=== PATIENT | female | born 1990 | race Caucasian/White ===

== ENCOUNTER 2020-06-04 10:50 | Emergency (ER) | payer OTHER, SELFPAY ==
[2020-06-04 11:02] VITALS: BP 113/75; PULSE 75; RESP 16; TEMP 36.4; O2SAT 98
--- NOTE | 2020-06-04 11:23 | ED.WOUNDLAC ---
HPI - Wound/Laceration General Chief Complaint: Wound/Laceration Stated Complaint: lump under right armpit Time Seen by Provider: 06/04/20 11:24 Source: patient Mode of arrival: ambulatory Limitations: no limitations History of Present Illness HPI narrative: Savanah Merrill is a 29 yo female with no PMH who comes to express care with tender bump under R axilla and rash on same arm away from lump. States has been present for 3 days- bump is 2 cm, non fluctuant. Related Data Home Medications Medication Instructions Recorded Confirmed No Home Medications 06/04/20 06/04/20 Allergies Allergy/AdvReac Type Severity Reaction Status Date / Time codeine Allergy Unknown Unknown Verified 10/05/19 14:45 Review of Systems Review of Systems: Narrative: CONSTITUTIONAL: Denies fever, chills, sweats. EYES: Denies visual changes, redness, discharge. ENT: Denies rhinorrhea, congestion, sore throat, otalgia. CARDIOVASCULAR: Denies chest pain, palpitations, edema. RESPIRATORY: Denies dyspnea, wheezing, cough GASTROINTESTINAL: Denies abdominal pain, nausea, vomiting, diarrhea. GENITOURINARY: Denies dysuria, hematuria, abnormal discharge SKIN: Rash on bilateral arms abdomen on breast; has deep 2 x 2 enlarged tender lymph node in the right axilla NEUROLOGIC: Denies numbness, or focal weakness. PSYCHIATRIC: Denies anxiety or depression. [facility] Past Medical History Medical History Active labor at term Anxiety Asthma Encounter for supervision of normal in multigravida in third trimester Megaloblastic anemia due to Family History Family History Father Hypertension Grandparent Carcinoma of colon Family history of primary malignant neoplasm of liver Social History Social History Smoking status: Former smoker Smoking end date: 09/21/19 Alcohol intake: never Substance use: never Gender identity (if verbalized by the patient): Female Spiritual care concerns: No Comments At time of signature, I agree with nursing past medical, surgical, social and family history. There is no relevant family history pertinent to the presenting complaint. Exam Narrative: Exam Narrative: GENERAL: This is a well-nourished, well-developed patient, in mild distress. HEAD: normocephalic, atraumatic. EYES: PERRL. Sclera clear/white. Vision is grossly intact. EARS: External ears normal, auditory canals clear and without drainage, TMs normal without perforation. Hearing grossly intact. NOSE: External nose normal without nasal discharge, nares without redness, no rhinorrhea. THROAT: Mucous membranes moist, posterior pharynx NECK: Neck supple, non-tender CARDIOVASCULAR: Regular rate and rhythm without murmurs, gallops, or rubs. RESPIRATORY: Clear to auscultation. Breath sounds equal bilaterally. No wheezes, rales, or rhonchi. GASTROINTESTINAL: Abdomen soft, non-tender, SKIN: Papular rash to abdomen pelvis region back bilateral arms. Is pruritic; has 2 x 2 enlarged tender lymph node under right axilla NEURO: awake, alert, and oriented to person, place and time. There were no obvious focal neurologic abnormalities. Steady gait EXTREMITIES: Normal range of motion. BACK: Nontender without deformity Course Course Emergency Course: Started on Keflex for the adenitis-to also use warm pack to axilla 3 times daily Started on Medrol Dosepak and Pepcid for rash that is contact dermatitis; patient will use OTC Benadryl to supplement Pepcid Patient follow-up with primary care physician Vital Signs Vital signs: Vital Signs Temperature 97.6 F 06/04/20 11:02 Pulse Rate 75 06/04/20 11:02 Respiratory Rate 16 06/04/20 11:02 Blood Pressure 113/75 06/04/20 11:02 Pulse Oximetry 98 06/04/20 11:02 Temperature 97.6 F 06/04/20 11:02 Pulse Rate 75
== END 2020-06-04 11:49 | disposition home or self-care (01) ==
PROVIDERS: Emergency Provider Nurse Practitioner
DX: L04.2 Acute lymphadenitis of upper limb (principal); L23.7 Allergic contact dermatitis due to plants, except food; Z87.891 Personal history of nicotine dependence; J45.909 Unspecified asthma, uncomplicated
CPT/HCPCS: 99213; G0463

== ENCOUNTER 2020-12-01 17:03 | Emergency (ER) | payer OTHER, SELFPAY ==
--- NOTE | 2020-12-01 17:12 | ED.SKABFB ---
HPI - Skin/Abscess/Foreign Bdy General Chief complaint: Skin/Abscess/Foreign Body Stated complaint: Splinter in Arm Time Seen by Provider: 12/01/20 17:20 Source: patient and RN notes reviewed Mode of arrival: ambulatory Limitations: no limitations History of Present Illness HPI narrative: 30-year-old female presents concern for her in her right forearm. Reports just prior to arrival [place] and fell into a tree catching herself with her arm. Reports she sustained a splinter. Reports she can see the splinter sticking out of her arm but when she tried to pull it out it was very painful. She is up-to-date on her tetanus shot. She denies any decreased strength, sensation, range of motion in the arm or distally. Denies any surrounding redness, tenderness, drainage. MD complaint: foreign body Related Data Home Medications Medication Instructions Recorded Confirmed No Home Medications 12/01/20 12/01/20 Allergies Allergy/AdvReac Type Severity Reaction Status Date / Time codeine Allergy Unknown Unknown Verified 12/01/20 17:14 Review of Systems Review of Systems: Narrative: CONSTITUTIONAL: Denies malaise, chills, sweats, or fever. SKIN: Reports splinter in the right forearm MUSCULOSKELETAL: Denies muscle skeletal pain NEUROLOGIC: Denies numbness, weakness All systems reviewed & are unremarkable except as noted in HPI and below PMFSH Past Medical History Medical History (Updated 12/01/20 @ 17:59 by Mary Ann Marley NP) Active labor at term Anxiety Asthma Encounter for supervision of normal in multigravida in third trimester Megaloblastic anemia due to Family History Family History Father Hypertension Grandparent Carcinoma of colon Family history of primary malignant neoplasm of liver Social History Social History Smoking status: Former smoker Smoking end date: 09/21/19 Alcohol intake: never Substance use: never Gender identity (if verbalized by the patient): Female Spiritual care concerns: No Comments At time of signature, agree with nursing past medical, surgical, social and family history. There is no relevant family history pertinent to the presenting complaint Exam Narrative: Exam Narrative: GENERAL: Well-appearing, well-nourished, and in no acute distress. HEAD: Normocephalic, atraumatic. EYES: PERRLA, conjunctivae clear ENT: Mucous membranes moist. NECK: Supple CHEST: No respiratory distress. Speaks in full sentences. HEART: Regular rate and rhythm. Capillary refill less than 3 seconds right upper extremity EXTREMITIES: Right arm, hand, digits have normal range of motion, no edema, normal strength and sensation. SKIN: Warm, dry abrasion with protruding wood splinter noted to right forearm without surrounding erythema, edema, induration, drainage NEURO: Alert and oriented x3. PSYCH: Normal mood and affect Skin: Full body images: 1. Foreign body visible, would splinter Course Course Emergency Course: Patient is aware of diagnosis, understands and agrees to treatment plan. Anticipatory guidance given. Patient agrees to follow-up as directed and is aware of reasons to seek care at the emergency department. Portions of this record may have been created with voice recognition software Vital Signs Vital signs: Reviewed. Procedures Foreign Body Removal Foreign Body #1: Foreign Body Removal Date: 12/01/20 Foreign Body Removal Time: 17:38 Time Out Performed: yes Site: right and upper extremity Description of foreign body: other (Wood splinter) Technique: removal with forceps, incision made to facilitate removal and irrigation Confirmed by:: direct visualization Complications: none Post-procedure exam: awake, alert Neurovascular: normal distal pulse, normal
[2020-12-01 17:16] VITALS: BP 108/60; PULSE 61; RESP 18; TEMP 36.6; O2SAT 100
== END 2020-12-01 18:00 | disposition home or self-care (01) ==
PROVIDERS: Emergency Provider Nurse Practitioner
DX: S51.841A Puncture wound with foreign body of right forearm, initial encounter (principal); W45.8XXA Other foreign body or object entering through skin, initial encounter; Z87.891 Personal history of nicotine dependence; J45.909 Unspecified asthma, uncomplicated
CPT/HCPCS: 10120; 99212; G0463

== ENCOUNTER 2021-04-01 11:35 | Emergency (ER) | payer OTHER, SELFPAY ==
--- NOTE | ~2021-04-01 | XR_ITS ---
EXAMINATION: XR hand RT min 3V EXAM DATE: 04/01/2021 12:02 INDICATION: Initial encounter following injury, with pain of the right hand. Swelling. TECHNIQUE: Right hand frontal, lateral and oblique projections obtained and reviewed. Comparison is m anju to prior examination from 09/08/2013. FINDINGS: Right metacarpal bones are unremarkable. There are no acute fractures or dislocations ident ified. There is no subcutaneous gas. The soft tissue is unremarkable. There are no radiopaque for eign bodies. IMPRESSION: No acute osseous findings. Reviewed, dictated and finalized at location B. IMPRESSION: No acute osseous findings.
[2021-04-01 11:39] VITALS: BP 125/71; PULSE 76; RESP 16; TEMP 37.2; O2SAT 99
--- NOTE | 2021-04-01 12:24 | ED.UPPEXIN ---
HPI - Extremity Injury (Upper) General Chief Complaint: Extremity Injury, Upper Stated Complaint: right hand pain Time Seen by Provider: 04/01/21 12:11 Source: RN notes reviewed History of Present Illness HPI narrative: Patient presents emergency room from home for pain in her right hand. Patient states last night she excellently struck her right hand in the region of the second knuckle on her child's play kitchen she states she had swelling in that area with pain since that time the pain is only localized to that acute region she denies any other trauma or injury states she is taken nothing for the pain states the pain is worse when she attempts to flex the finger at the knuckle Related Data Allergies Allergy/AdvReac Type Severity Reaction Status Date / Time codeine Allergy Unknown Unknown Verified 04/01/21 12:06 Review of Systems Review of Systems: Narrative: Gen.: Denies fevers or chills Musculoskeletal: See HPI Neuro: Denies numbness, tingling, weakness Skin: Denies rash Endo: Denies DM PMFSH Past Medical History Medical History (Updated 04/01/21 @ 12:27 by Juan Camilo DO) Active labor at term Anxiety Asthma Encounter for supervision of normal in multigravida in third trimester Megaloblastic anemia due to Family History Family History Father Hypertension Grandparent Carcinoma of colon Family history of primary malignant neoplasm of liver Social History Social History Smoking status: Former smoker Smoking end date: 09/21/19 Alcohol intake: never Substance use: never Gender identity (if verbalized by the patient): Female Spiritual care concerns: No Exam Narrative: Exam Narrative: APPEARANCE: No acute distress, nontoxic, resting in bed Eyes: EOMI HEENT: Normocephalic, atraumatic, RESPIRATORY: No respiratory distress MUSCULOSKELETAl: Tender to palpation over the second right MCP joint with swelling and mild ecchymosis present there is swelling ecchymosis the proceeds of the second digit there is no tenderness of the first, third, fourth or fifth MCP joints, no tenderness of the second PIP or DIP joint, full extension of all the joints pain with flexion at the second MCP joint with full flexion and extension at the DIP and PIP joints, radial pulse 2+ neurovascular intact capillary refill less than 3 seconds NEURO: Awake and alert. Following commands, speech normal, no focal deficits SKIN:: Warm, dry. Normal Color no rash or lesions Course Course Emergency Course: Discussed with patient results of workup and diagnosis. Discussed need for follow-up with primary care, proper use of medication, and reasons to return to the emergency department. Patient understands and agrees to current treatment plan Vital Signs Vital signs: Vital Signs Temperature 98.9 F 04/01/21 11:39 Pulse Rate 76 04/01/21 11:39 Respiratory Rate 16 04/01/21 11:39 Blood Pressure 125/71 04/01/21 11:39 Pulse Oximetry 99 04/01/21 11:39 Temperature 98.9 F 04/01/21 11:39 Pulse Rate 76 04/01/21 11:39 Respiratory Rate 16 04/01/21 11:39 Blood Pressure 125/71 04/01/21 11:39 Pulse Oximetry 99 04/01/21 11:39 MDM - Extremity Injury (Upper) Imaging Data Radiologist's impression: ITS Impressions Hand X-Ray 04/01/21 12:04 IMPRESSION: No acute osseous findings. Discharge Plan Discharge Clinical Impression: Contusion of hand, right Patient Disposition: Home, Self-Care Condition: Stable Instructions: Antibiotic Form, Contusion in Adults (ED) Additional Instructions: Return for increasing pain numbness or tingling in extremities or any other symptoms of concern Prescriptions: New ibuprofen [IBU] 600 mg tablet 600 mg PO Q6H PRN (Reason: pain) Qty: 20 RF: 0 Follow-up/Referrals: Romeo Darby MD [Physician] - (Follow-u
[2021-04-01] MEDS: IBUPROFEN 600 MG TABLET PO (12:32)
[2021-04-01 12:45] VITALS: BP 122/77; PULSE 77; RESP 16; O2SAT 100
--- NOTE | 2021-04-07 08:51 | PC.NURSE ---
LATE ENTRY Patient injury was to right hand, not left hand. This note is being entered to document information to the patient's record. The following information was omitted on [04/01/21], by [Marjan Harris RN].
== END 2021-04-01 12:46 | disposition home or self-care (01) ==
PROVIDERS: Emergency Provider Emergency Medicine
DX: S60.221A Contusion of right hand, initial encounter (principal); F41.9 Anxiety disorder, unspecified; J45.909 Unspecified asthma, uncomplicated; W22.09XA Striking against other stationary object, initial encounter
CPT/HCPCS: 29130; 73130; 99283; A9270

== ENCOUNTER 2023-10-10 17:55 | Emergency (ER) | payer OTHER, SELFPAY ==
[2023-10-10 18:24] VITALS: BP 113/68; PULSE 105; TEMP 36.8; O2SAT 100
[2023-10-10 19:27] VITALS: BP 116/68; PULSE 86; RESP 15; O2SAT 100
[2023-10-10 19:31] LABS: Basophils Percent Auto 0.1 % (0.2-1.2); Eosinophils Percent Auto 0.1 % (0-4.4); Hematocrit 37.1 % (37.0-47.0); Hemoglobin 12.7 g/dL (12.0-15.0); Immature Granulocyte Absolute 0.02 K/mm3 (0.00-0.031); Immature Granulocyte Percent A 0.3 % (0-0.5); Lymphocytes Absolute Auto 0.23 K/mm3 (0.9-3.2); Lymphocytes Percent Auto 3.4 % (18.3-44.2); Mean Corpuscular HGB Conc 34.2 g/dl (32-36); Mean Corpuscular Volume 87.7 fl (80-100); Mean Platelet Volume 10.2 fl (7.4-10.4); Monocytes Absolute Auto 0.4 K/mm3 (0.1-0.6); Monocytes Percent Auto 5.5 % (2.6-8.5); Neutrophils Absolute Auto 6.1 K/mm3 (1.3-6.7); Neutrophils Percent Auto 90.6 % (45.5-73.1); Platelet Count Result 169 k/mm3 (150-375); Red Blood Count 4.23 M/mm3 (4.2-5.4); Red Cell Distribution Width 12.2 % (11.5-14.5); White Blood Count 6.8 K/mm3 (4.5-10.0)
[2023-10-10 19:39] LABS: Appearance Urine Clear (Clear); Bacteria Urine 1+ /hpf; Bilirubin Urine Negative (Negative); Blood Urine 2+ (Negative); Color Urine Dark Yellow (Yellow); Glucose Urine UA Negative (Negative); Ketones Urine 4+ mg/dL (Negative); Leukocyte Esterase Ur Negative LEU/UL (Negative); Need Manual Microscopic Reviewed; Nitrate Urine Negative (Negative); Non Pathogenic Casts 0-2; Protein Urine 1+ mg/dL (Negative); RBC Urine 0-2 /hpf (0-2); Specific Grav Ur 1.025 (1.001-1.035); Squamous Epithelial Cell Urine Moderate /hpf (Few); pH Urine 5.5 (5.0-9.0)
[2023-10-10 19:40] LABS: Add Urine Microscopic? YES
[2023-10-10 20:05] LABS: Alanine Aminotransferase 11 U/L (6-35); Albumin Level 4.3 g/dL (3.5-5.1); Alkaline Phosphatase 54 U/L (38-126); Anion Gap 6 mmol/L (8-16); Aspartate Amino Transferase 20 U/L (14-36); Bilirubin,Total 0.4 mg/dL (0.2-1.3); Blood Urea Nitrogen 5 mg/dL (7-17); Calcium 9.6 mg/dL (8.4-10.2); Carbon Dioxide 25 mmol/L (22-30); Chloride 103 mmol/L (98-107); Estimated CRCL calculation 132 ml/min; Estimated Glomerular Filt Rate > 60; Glucose 116 mg/dL (65-110); Lipase 31 U/L (23-300); Potassium 3.2 mmol/L (3.4-5.0); Sodium 134 mmol/L (137-145)
[2023-10-10] MEDS: ONDANSETRON INJ 4 MG/2 ML VIAL IV PUSH (20:25)
[2023-10-10] MEDS: LACTATED RINGERS 1,000 ML 999 ML IV CONT (20:36)
[2023-10-10] MEDS: ACETAMINOPHEN 325 MG TABLET 650 MG PO (21:17)
[2023-10-10 21:21] VITALS: BP 110/70; PULSE 86; RESP 15; O2SAT 100
--- NOTE | 2023-10-10 21:37 | ED.ABDPAIN ---
HPI - Abdominal Pain General Chief Complaint: Abdominal Pain Stated Complaint: 16WEEKS PREG ABD PAIN Time Seen by Provider: 10/10/23 20:22 Source: patient Mode of arrival: ambulatory History of Present Illness HPI narrative: 33-year-old 5 para for about 16 weeks of gestation here with a complaint of nausea, vomiting, headache for past few days. Patient states that she does not have OBGYN because of her insurance. She presently denies any vaginal bleeding or discharge. MD elicited complaint: abdominal pain Onset (ago): week(s) Pain Consistency: constant Location: none Severity: moderate Quality: aching Radiation: none Migration to: no migration Exacerbating factors: eating Relieving factors: nothing Context: confirms other () Associated symptoms: denies other symptoms, nausea and vomiting Related Data Patient : Yes Allergies Allergy/AdvReac Type Severity Reaction Status Date / Time codeine Allergy Unknown Unknown Verified 04/01/21 12:06 Review of Systems Review of Systems: All systems reviewed & are unremarkable except as noted in HPI and below Constitutional: Constitutional: Reports no additional constitutional complaints Eyes: Eyes: Reports no additional eye complaints ENT: Reports system reviewed and no additional complaints, except as documented Cardiovascular: Cardiovascular: Reports no additional cardiovascular complaints Respiratory: Respiratory: Reports no additional respiratory complaints Gastrointestinal: Gastrointestinal: Reports as per HPI Musculoskeletal: Musculoskeletal: Reports no additional musculoskeletal complaints Neurologic: Reports system reviewed and no additional complaints, except as documented Psychiatric: Psychiatric: Reports no additional psychiatric complaints PMFSH Past Medical History Medical History (Updated 10/10/23 @ 21:40 by Julius Ernandez MD) Active labor at term Anxiety Asthma Encounter for supervision of normal in multigravida in third trimester Megaloblastic anemia due to Family History Family History Father Hypertension Grandparent Carcinoma of colon Family history of primary malignant neoplasm of liver Social History Social History Smoking status: Former smoker Smoking end date: 09/21/19 Alcohol intake: never Substance use: never Gender identity (if verbalized by the patient): Female Spiritual care concerns: No Exam Narrative: GENERAL: Well-appearing, well-nourished, and in no acute distress. HEAD: Normocephalic, atraumatic. EYES: PERRLA and EOMI.. NECK: Supple. CHEST: Clear to auscultation. No respiratory distress. HEART: Regular rate and rhythm. No murmur heard. Normal peripheral pulses. ABDOMEN: Soft, nontender, nondistended, normal active bowel sounds. EXTREMITIES: Normal range of motion. No edema. SKIN: Warm, dry, no rash. NEURO: No focal deficits. Alert and oriented x3. PSYCH: Normal mood and affect. Course Course Emergency Course: patient was given a L of LR, Zofran. She is feeling much better rest however still has a headache new given Tylenol. Recommended her to follow-up with OBGYN. Vital Signs Vital signs: Vital Signs Temperature 36.8 C 10/10/23 18:24 Pulse Rate 105 H 10/10/23 18:24 Blood Pressure 113/68 10/10/23 18:24 Pulse Oximetry 100 10/10/23 18:24 Temperature 36.8 C 10/10/23 18:24 Pulse Rate 86 10/10/23 21:21 Respiratory Rate 15 10/10/23 21:21 Blood Pressure 110/70 10/10/23 21:21 Pulse Oximetry 100 10/10/23 21:21 MDM - Abdominal Pain Lab Data 10/10/23 19:21 10/10/23 19:21 Labs: Lab Results 10/10/23 Range/Units 19:21 WBC 6.8 (4.5-10.0) K/mm3 RBC 4.23 (4.2-5.4) M/mm3 Hgb 12.7 (12.0-15.0) g/dL Hct 37.1 (37.0-47.0) % MCV 87.7 (80-100) fl MCH 3
[2023-10-10 21:58] VITALS: BP 108/64; PULSE 84; RESP 17; O2SAT 99
== END 2023-10-10 22:00 | disposition home or self-care (01) ==
PROVIDERS: Emergency Medicine; Emergency Provider Family Medicine
DX: O21.0 Mild hyperemesis gravidarum (principal); O99.512 Diseases of the respiratory system complicating pregnancy, second trimester; J45.909 Unspecified asthma, uncomplicated; Z86.2 Personal history of diseases of the blood and blood-forming organs and certain disorders involving the immune mechanism; Z87.891 Personal history of nicotine dependence; Z3A.16 16 weeks gestation of pregnancy
CPT/HCPCS: 36415; 80053; 81001; 81025; 83690; 85025; 87086; 96361; 96374; 99284; A9270; J2405; J7120

== ENCOUNTER 2023-12-07 11:07 | Observation (INO) | payer OTHER, SELFPAY ==
[2023-12-07] VITALS (17 sets, daily range): BP systolic 99–117; BP diastolic 53–65; PULSE 59–82; RESP 16–18; TEMP 36.5–36.6; BMI 24.7
--- NOTE | 2023-12-07 12:15 | OBADM ---
This patient, Fátima Merrill, admitted to the OB room 113 for observation. Patient/family oriented to hospital policies and general routines including ID bracelet, bed and alarms, visiting hours, pain management, procedures, bathroom and other care routines, personal items, smoking policy, room service/diet, and visiting hours. Patient/Family are encouraged to report perceived risks to care and to ask questions if they do not understand what they are told or what they should do.
[2023-12-07 13:05] LABS: Appearance Urine Cloudy (Clear); Bacteria Urine 1+ /hpf; Bilirubin Urine Negative (Negative); Blood Urine 3+ (Negative); Color Urine Yellow (Yellow); Glucose Urine UA Negative (Negative); Ketones Urine Negative (Negative); Leukocyte Esterase Ur Negative LEU/UL (Negative); Nitrate Urine Negative (Negative); Non Pathogenic Casts 0-2; Protein Urine 1+ mg/dL (Negative); RBC Urine >100 /hpf (0-2); Specific Grav Ur 1.019 (1.001-1.035); Squamous Epithelial Cell Urine Occasional /hpf (Few); Urobilinogen Urine 0.2 mg/dL (<2.0); WBC Urine 0-5 /hpf (0-3); pH Urine 7.5 (5.0-9.0)
[2023-12-07 13:07] LABS: Add Urine Microscopic? YES
[2023-12-07] MEDS: ACETAMINOPHEN 500 MG TABLET 1000 MG PO (14:17)
[2023-12-07 14:42] LABS: Basophils Percent Auto 0.2 % (0.2-1.2); Eosinophils Absolute Auto 0.1 K/mm3 (0-0.3); Eosinophils Percent Auto 0.8 % (0-4.4); Hematocrit 33.9 % (37.0-47.0); Hemoglobin 11.2 g/dL (12.0-15.0); Immature Granulocyte Absolute 0.05 K/mm3 (0.00-0.031); Immature Granulocyte Percent A 0.4 % (0-0.5); Lymphocytes Absolute Auto 2.13 K/mm3 (0.9-3.2); Lymphocytes Percent Auto 18.8 % (18.3-44.2); Mean Corpuscular Hemoglobin 30.1 pg (26-34); Mean Corpuscular Volume 91.1 fl (80-100); Mean Platelet Volume 10.1 fl (7.4-10.4); Monocytes Absolute Auto 0.6 K/mm3 (0.1-0.6); Monocytes Percent Auto 4.9 % (2.6-8.5); Neutrophils Absolute Auto 8.5 K/mm3 (1.3-6.7); Neutrophils Percent Auto 74.9 % (45.5-73.1); Platelet Count Result 174 k/mm3 (150-375); Red Blood Count 3.72 M/mm3 (4.2-5.4); Red Cell Distribution Width 13.5 % (11.5-14.5); White Blood Count 11.3 K/mm3 (4.5-10.0)
[2023-12-07] MEDS: TERBUTALINE SULFATE 1 MG/ML VIAL 0.25 MG SUB-Q (16:06)
--- NOTE | 2023-12-07 17:07 | PC.NURSE ---
Dr. Reilly informed pt only needed the one dose of Brethine and pt's pain is gone. Pt may be discharged if she is able to eat and still feels OK.
--- NOTE | 2023-12-22 13:57 | P.PNOB_ITS ---
OB - Triage/Final Diagnosis Visit Information Comments/Additional reasons for admission: I have assessed the risk for this patient, Fátima Merrill, and determined that she would benefit from observation care. Evaluation Laboratory results: Laboratory Tests 12/07/23 12/07/23 12:34 14:24 WBC 11.3 H RBC 3.72 L Hgb 11.2 L Hct 33.9 L MCV 91.1 MCH 30.1 MCHC 33.0 RDW 13.5 Plt Count 174 MPV 10.1 Immature Gran % (Auto) 0.4 Neut % (Auto) 74.9 H Lymph % (Auto) 18.8 [place] % (Auto) 4.9 Eos % (Auto) 0.8 Baso % (Auto) 0.2 Lymph # (Auto) 2.13 [place] # (Auto) 0.6 Eos # (Auto) 0.1 Baso # (Auto) 0.0 Abs Immat Gran (auto) 0.05 H Absolute Neuts (auto) 8.5 H Absolute Nucleated RBC 0.000 Nucleated RBC % 0.0 Urine Color Yellow Urine Appearance Cloudy H Urine pH 7.5 Ur Specific [place] 1.019 Urine Protein 1+ H Urine Glucose (UA) Negative Urine Ketones Negative Ur Blood (Man) 3+ H Urine Nitrate Negative Urine Bilirubin Negative Urine Urobilinogen 0.2 Leukocyte Esterase Rfl Negative Urine RBC >100 H Urine WBC 0-5 Ur Squamous Epith Cells Occasional Urine Bacteria 1+ H Urine Casts 0-2 Final Diagnosis (1) contractions: Code(s): O47.00 - False labor before 37 completed weeks of gestation, unspecified trimester Status: Acute
== END 2023-12-07 18:56 | disposition home or self-care (01) ==
PROVIDERS: Admitting Provider Obstetrics & Gynecology; Visit Provider Obstetrics & Gynecology
DX: O47.00 False labor before 37 completed weeks of gestation, unspecified trimester (principal); Z3A.24 24 weeks gestation of pregnancy
CPT/HCPCS: 36415; 81001; 85025; 96372; A9270; G0378; G0379; J3105

== ENCOUNTER 2023-12-28 15:06 | Outpatient (CLI) | payer OTHER, SELFPAY ==
[2023-12-28 16:36] LABS: Hematocrit 32.1 % (37.0-47.0); Mean Corpuscular HGB Conc 34.3 g/dl (32-36); Mean Corpuscular Hemoglobin 30.6 pg (26-34); Mean Corpuscular Volume 89.2 fl (80-100); Platelet Count Result 185 k/mm3 (150-375); White Blood Count 10.4 K/mm3 (4.5-10.0)
[2023-12-28 16:51] LABS: Glucose 1 Hour PP 50gm Dose 97 mg/dL
== END 2023-12-28 15:07 | disposition home or self-care (01) ==
LOC: ANHLAB 15:08
PROVIDERS: Visit Provider Nurse Practitioner Family
DX: Z34.90 Encounter for supervision of normal pregnancy, unspecified, unspecified trimester (principal); Z3A.00 Weeks of gestation of pregnancy not specified
CPT/HCPCS: 36415; 82947; 85027

== ENCOUNTER 2024-02-04 19:02 | Observation (INO) | payer OTHER, SELFPAY ==
[2024-02-04] VITALS (20 sets, daily range): BP systolic 90–91; BP diastolic 48–51; PULSE 81–101; RESP 18; TEMP 36.6; O2SAT 94–100; BMI 28.0
[2024-02-04] MEDS: IPRATROPIUM 0.5 MG/ALBUTEROL SULFATE 2.5 MG AMPUL.NEB 3 ML INHALATION (19:52)
[2024-02-04 19:54] LABS: Basophils Percent Auto 0.3 % (0.2-1.2); Eosinophils Absolute Auto 0.3 K/mm3 (0-0.3); Eosinophils Percent Auto 2.2 % (0-4.4); Hematocrit 31.4 % (37.0-47.0); Hemoglobin 10.8 g/dL (12.0-15.0); Immature Granulocyte Absolute 0.15 K/mm3 (0.00-0.031); Immature Granulocyte Percent A 1.1 % (0-0.5); Lymphocytes Percent Auto 14.2 % (18.3-44.2); Mean Corpuscular HGB Conc 34.4 g/dl (32-36); Mean Corpuscular Hemoglobin 30.7 pg (26-34); Mean Corpuscular Volume 89.2 fl (80-100); Mean Platelet Volume 10.1 fl (7.4-10.4); Monocytes Absolute Auto 1.4 K/mm3 (0.1-0.6); Monocytes Percent Auto 9.8 % (2.6-8.5); Neutrophils Absolute Auto 10.2 K/mm3 (1.3-6.7); Neutrophils Percent Auto 72.4 % (45.5-73.1); Platelet Count Result 192 k/mm3 (150-375); Red Blood Count 3.52 M/mm3 (4.2-5.4); Red Cell Distribution Width 13.2 % (11.5-14.5); White Blood Count 14.1 K/mm3 (4.5-10.0)
[2024-02-04 20:07] LABS: Albumin Level 3.6 g/dL (3.5-5.1); Alkaline Phosphatase 82 U/L (38-126); Anion Gap 5 mmol/L (4-12); Aspartate Amino Transferase 15 U/L (14-36); Bilirubin,Total 0.3 mg/dL (0.2-1.3); Blood Urea Nitrogen 5 mg/dL (7-17); Calcium 9.5 mg/dL (8.4-10.2); Carbon Dioxide 22 mmol/L (22-30); Chloride 105 mmol/L (98-107); Estimated Glomerular Filt Rate > 60; Glucose 88 mg/dL (65-110); Potassium 3.5 mmol/L (3.4-5.0); Sodium 132 mmol/L (137-145)
[2024-02-04 20:11] LABS: Alanine Aminotransferase < 6 U/L (6-35)
[2024-02-04 20:31] LABS: Influenza A QL RT-PCR Negative (Negative); Influenza B QL RT-PCR Negative (Negative); RSV RNA, RT-PCR Negative (Negative); SARS-CoV-2 RNA PCR Negative (Negative)
--- NOTE | 2024-02-04 20:38 | OBADM ---
This patient, Fátima Merrill, admitted to the OB room OB Post 116 for observation. Patient/family oriented to hospital policies and general routines including ID bracelet, bed and alarms, visiting hours, pain management, procedures, bathroom and other care routines, personal items, smoking policy, room service/diet, and visiting hours. Patient/Family are encouraged to report perceived risks to care and to ask questions if they do not understand what they are told or what they should do.
--- NOTE | 2024-02-04 20:43 | PM.OBTRLD ---
OB - Triage/Final Diagnosis Visit Information Comments/Additional reasons for admission: I have assessed the risk for this patient, Fátima Merrill, and determined that she would benefit from observation care. Evaluation Laboratory results: Laboratory Tests 02/04/24 19:49 WBC 14.1 H RBC 3.52 L Hgb 10.8 L Hct 31.4 L MCV 89.2 MCH 30.7 MCHC 34.4 RDW 13.2 Plt Count 192 MPV 10.1 Immature Gran % (Auto) 1.1 H Neut % (Auto) 72.4 Lymph % (Auto) 14.2 L [place] % (Auto) 9.8 H Eos % (Auto) 2.2 Baso % (Auto) 0.3 Lymph # (Auto) 2.00 [place] # (Auto) 1.4 H Eos # (Auto) 0.3 Baso # (Auto) 0.0 Abs Immat Gran (auto) 0.15 H Absolute Neuts (auto) 10.2 H Absolute Nucleated RBC 0.000 Nucleated RBC % 0.0 Sodium 132 L Potassium 3.5 Chloride 105 Carbon Dioxide 22 Anion Gap 5 BUN 5 L Creatinine 0.50 L Estim Creat Clear Calc Not Reportable Estimated GFR > 60 Glucose 88 Calcium 9.5 Total Bilirubin 0.3 AST 15 ALT < 6 L Alkaline Phosphatase 82 Total Protein 6.0 L Albumin 3.6 Influenza A (RT-PCR) Negative Influenza B (RT-PCR) Negative RSV (RT-PCR) Negative SARS-CoV-2 RNA (RT-PCR) Negative Vital signs: Vital Signs - 24 hr 02/04/24 19:21 02/04/24 19:23 02/04/24 19:27 Temperature Pulse Rate 91 Respiratory Rate Blood Pressure 90/51 L Pulse Oximetry 98 98 Oxygen Delivery 02/04/24 19:30 02/04/24 19:31 02/04/24 19:36 Temperature Pulse Rate 92 Respiratory Rate Blood Pressure 91/48 L Pulse Oximetry 97 97 Oxygen Delivery 02/04/24 19:41 02/04/24 19:46 02/04/24 19:51 Temperature Pulse Rate Respiratory Rate Blood Pressure Pulse Oximetry 96 94 100 Oxygen Delivery 02/04/24 19:56 02/04/24 20:01 02/04/24 20:07 Temperature Pulse Rate Respiratory Rate Blood Pressure Pulse Oximetry 100 99 97 Oxygen Delivery 02/04/24 20:12 02/04/24 20:17 02/04/24 20:22 Temperature Pulse Rate Respiratory Rate Blood Pressure Pulse Oximetry 98 99 96 Oxygen Delivery 02/04/24 20:27 02/04/24 20:32 02/04/24 20:37 Temperature Pulse Rate Respiratory Rate Blood Pressure Pulse Oximetry 96 98 95 Oxygen Delivery 02/04/24 20:42 02/04/24 20:38 02/04/24 20:38 Temperature 97.9 F Pulse Rate 98 Respiratory Rate 18 Blood Pressure 90/51 L Pulse Oximetry 96 99 Oxygen Delivery Room Air Room Air Final Diagnosis (1) Cough: Code(s): R05.9 - Cough, unspecified Status: Acute (2) SOB (shortness of breath): Code(s): R06.02 - Shortness of breath Status: Acute
== END 2024-02-04 20:55 | disposition home or self-care (01) ==
PROVIDERS: Admitting Provider Obstetrics & Gynecology; Visit Provider Obstetrics & Gynecology
DX: O99.513 Diseases of the respiratory system complicating pregnancy, third trimester (principal); R05.9 Cough, unspecified; R06.02 Shortness of breath; Z3A.32 32 weeks gestation of pregnancy; Z20.822 Contact with and (suspected) exposure to COVID-19
CPT/HCPCS: 36415; 80053; 85025; 87637; G0378; G0379

== ENCOUNTER 2024-03-13 16:34 | Observation (INO) | payer OTHER, SELFPAY ==
--- NOTE | 2024-03-14 09:19 | PM.OBTRLD ---
OB - Triage/Final Diagnosis Visit Information Reason for evaluation: threatened labor Comments/Additional reasons for admission: I have assessed the risk for this patient, Fátima Merrill, and determined that she would benefit from observation care.
== END 2024-03-13 19:36 | disposition home or self-care (01) ==
PROVIDERS: Admitting Provider Obstetrics & Gynecology; Visit Provider Obstetrics & Gynecology
DX: O47.1 False labor at or after 37 completed weeks of gestation (principal); Z3A.38 38 weeks gestation of pregnancy
CPT/HCPCS: G0378; G0379

== ENCOUNTER 2024-03-20 09:15 | Inpatient (IN) | payer OTHER, SELFPAY ==
[2024-03-20] VITALS (78 sets, daily range): BP systolic 89–126; BP diastolic 44–82; PULSE 25–185; TEMP 36.3–36.6; O2SAT 78–100; BMI 29.0
--- NOTE | 2024-03-20 09:50 | LDADM ---
This patient, Fátima Merrill, was admitted to Labor/Delivery/Recovery 108 on 03/20/24 at 09:15. Plans for labor, pain management and were discussed with patient. Patient/family oriented to hospital policies and general routines including ID bracelet, bed and alarms, visiting hours, pain management, procedures, bathroom and other care routines, personal items, smoking policy, room service/diet and guest tray routines, infant security routines, and visiting hours. Patient/Family are encouraged to report perceived risks to care and to ask questions if they do not understand what they are told or what they should do. See [facility] for further documentation.
[2024-03-20 10:25] LABS: Basophils Absolute Auto 0.1 K/mm3 (0.0-0.1); Basophils Percent Auto 0.4 % (0.2-1.2); Eosinophils Absolute Auto 0.1 K/mm3 (0-0.3); Eosinophils Percent Auto 0.9 % (0-4.4); Hematocrit 33.8 % (37.0-47.0); Hemoglobin 11.7 g/dL (12.0-15.0); Immature Granulocyte Absolute 0.07 K/mm3 (0.00-0.031); Immature Granulocyte Percent A 0.6 % (0-0.5); Lymphocytes Absolute Auto 2.67 K/mm3 (0.9-3.2); Mean Corpuscular HGB Conc 34.6 g/dl (32-36); Mean Corpuscular Hemoglobin 30.6 pg (26-34); Mean Corpuscular Volume 88.5 fl (80-100); Mean Platelet Volume 10.7 fl (7.4-10.4); Monocytes Absolute Auto 0.8 K/mm3 (0.1-0.6); Monocytes Percent Auto 7.1 % (2.6-8.5); Neutrophils Absolute Auto 7.9 K/mm3 (1.3-6.7); Platelet Count Result 219 k/mm3 (150-375); Red Blood Count 3.82 M/mm3 (4.2-5.4); Red Cell Distribution Width 13.9 % (11.5-14.5); White Blood Count 11.6 K/mm3 (4.5-10.0)
[2024-03-20] MEDS: miSOPROStol 25 MCG TABLET 50 MCG BUCCAL (10:39)
[2024-03-20 11:16] LABS: HIV 1/2 Ab P24 Ag Result Negative (Negative)
[2024-03-20] MEDS: ONDANSETRON INJ 4 MG/2 ML VIAL IV PUSH (14:11)
[2024-03-20] MEDS: FAMOTIDINE 20 MG/2 ML VIAL IV PUSH (14:11)
[2024-03-20] MEDS: LACTATED RINGERS 1,000 ML 125 ML IV CONT ×2 (16:25→18:53)
[2024-03-20] MEDS: OXYTOCIN 30 UNITS/NS 500 ML 30 UNITS/500 ML BAG IV CONT (16:26)
[2024-03-20] MEDS: fentaNYL CITRATE INJ (*CRX) 100 MCG/2 ML VIAL IV PUSH (18:52)
--- NOTE | 2024-03-20 18:57 | WPDANESEPP ---
Anes - Eval Pre Procedure Procedure: Labor epidural Date/Time: 03/20/24 18:57 Surgeon: Tommie Preop Diagnosis: Abdominal pain with contractions Pre Op Diagnosis: IOL Patient Data Age: 33 Gender: F Height: 1.7 m Weight: 84.1 kg Last Vital Signs Temp 97.9 F 03/20/24 15:58 Pulse 78 03/20/24 18:30 BP 113/60 03/20/24 18:30 Pulse Ox 100 03/20/24 18:55 O2 Del Method Room Air 03/20/24 09:45 Allergies Allergy/AdvReac Type Severity Reaction Status Date / Time codeine AdvReac Unknown Nausea and Verified 03/12/24 14:11 Vomiting Home Medications Medication Instructions Recorded Confirmed Type ferrous sulfate 325 mg (65 mg 325 mg PO DAILY 01/19/24 03/01/24 History iron) tablet (Feosol) prenat.vits,carie,[id number] 1 tablet PO QAM 02/24/24 03/20/24 History Laboratory Tests 03/20/24 09:32 WBC 11.6 H K/mm3 (4.5-10.0) RBC 3.82 L M/mm3 (4.2-5.4) Hgb 11.7 L g/dL (12.0-15.0) Hct 33.8 L % (37.0-47.0) MCV 88.5 fl (80-100) MCH 30.6 pg (26-34) MCHC 34.6 g/dl (32-36) RDW 13.9 % (11.5-14.5) Plt Count 219 k/mm3 (150-375) MPV 10.7 H fl (7.4-10.4) Immature Gran % (Auto) 0.6 H % (0-0.5) Neut % (Auto) 68.0 % (45.5-73.1) Lymph % (Auto) 23.0 % (18.3-44.2) [place] % (Auto) 7.1 % (2.6-8.5) Eos % (Auto) 0.9 % (0-4.4) Baso % (Auto) 0.4 % (0.2-1.2) Lymph # (Auto) 2.67 K/mm3 (0.9-3.2) [place] # (Auto) 0.8 H K/mm3 (0.1-0.6) Eos # (Auto) 0.1 K/mm3 (0-0.3) Baso # (Auto) 0.1 K/mm3 (0.0-0.1) Abs Immat Gran (auto) 0.07 H K/mm3 (0.00-0.031) Absolute Neuts (auto) 7.9 H K/mm3 (1.3-6.7) Absolute Nucleated RBC 0.000 K/mm3 (0.0-0.012) Nucleated RBC % 0.0 % (0.0-0.2) RPR Pending HIV 1&2 Ab/P24 Ag 4thGn Negative (Negative) Blood Type AB Positive Antibody Screen Negative : gestational age HCG: positive Patient hx anesthesia problems: none Family hx anesthesia problems: none Results Review: All pre-operative results and documents have been reviewed as part of the pre-operative evaluation. [facility] Past Medical History Medical History Active labor at term Anxiety Asthma Encounter for supervision of normal in multigravida in third trimester Megaloblastic anemia due to Family History Family History Father Hypertension Grandparent Carcinoma of colon Family history of primary malignant neoplasm of liver Social History Social History Smoking status: Never smoker Second hand tobacco smoke exposure: No Smoking end date: 09/21/19 Alcohol intake: never Substance use: never Substance use type: marijuana Do You Feel Safe in your Home?: Yes Lack of Transportation: No Lack of Food: Never True Current Housing: I Have Housing Concerned About Future Housing: No Difficulty Paying Gas/Electric Bills: No Difficulty Paying for Meds: No Currently Unemployed: No Education: High School Diploma/GED Difficulty w/ Childcare or Family Care: No Gender identity (if verbalized by the patient): Female Spiritual care concerns: No Exam Day of Procedure 03/20/24 18:57 Patient weight: overweight
--- NOTE | 2024-03-20 22:54 | PM.IMHP ---
H&P: HPI History of Present Illness Date/Time: 03/20/24 22:54 Chief Complaint: Medical induction of labor Narrative: patient is a 33-year-old G 5p3 at 39 weeks. She was admitted for medical induction of labor. course significant for transfer in at 19 weeks. History of migraines which have been stable. GBS negative. Review of Systems Review of Systems: All systems reviewed & are unremarkable except as noted in HPI and below Constitutional: Constitutional: Reports no additional constitutional complaints and Denies headache(s) Eyes: Eyes: Denies spots in vision ENT: Reports system reviewed and no additional complaints, except as documented and Denies headache(s) Cardiovascular: Cardiovascular: Denies chest pain and Denies dyspnea Respiratory: Respiratory: Denies dyspnea Gastrointestinal: Gastrointestinal: Reports no additional gastrointestinal complaints Genitourinary: Genitourinary: Reports amenorrhea Musculoskeletal: Musculoskeletal: Reports no additional musculoskeletal complaints Integumentary/Breasts: Skin/Breast: Denies breast mass and Denies rash Neurologic: Denies headache(s) Psychiatric: Psychiatric: Reports no additional psychiatric complaints [facility] Past Medical History Medical History (Updated 03/21/24 @ 10:16 by Maynor Reilly MD) Active labor at term Anxiety Asthma Encounter for supervision of normal in multigravida in third trimester Megaloblastic anemia due to Family History Family History Father Hypertension Grandparent Carcinoma of colon Family history of primary malignant neoplasm of liver Social History Social History Smoking status: Never smoker Second hand tobacco smoke exposure: No Smoking end date: 09/21/19 Alcohol intake: never Substance use: never Substance use type: marijuana Do You Feel Safe in your Home?: Yes Lack of Transportation: No Lack of Food: Never True Current Housing: I Have Housing Concerned About Future Housing: No Difficulty Paying Gas/Electric Bills: No Difficulty Paying for Meds: No Currently Unemployed: No Education: High School Diploma/GED Difficulty w/ Childcare or Family Care: No Gender identity (if verbalized by the patient): Female Spiritual care concerns: No Meds Home Medications and Allergies Home Medications Medication Instructions Recorded Confirmed Type ferrous sulfate 325 mg (65 mg 325 mg PO DAILY 01/19/24 03/01/24 History iron) tablet (Feosol) prenat.vits,carie,[id number] 1 tablet PO QAM 02/24/24 03/20/24 History Allergies Allergy/AdvReac Type Severity Reaction Status Date / Time codeine AdvReac Unknown Nausea and Verified 03/12/24 14:11 Vomiting Vital Signs Vital Signs - 24 hr 03/20/24 09:40 03/20/24 09:45 03/20/24 10:00 Temperature 97.3 F L Pulse Rate 84 73 79 Blood Pressure 107/69 105/63 107/61 Pulse Oximetry Oxygen Delivery 03/20/24 10:15 03/20/24 10:30 03/20/24 10:45 Temperature Pulse Rate 78 71 71 Blood Pressure 96/61 L 104/61 107/56 L Pulse Oximetry Oxygen Delivery 03/20/24 11:00 03/20/24 13:07 03/20/24 13:15 Temperature Pulse Rate 69 79 71 Blood Pressure 98/57 L 111/56 L 114/61 Pulse Oximetry Oxygen Delivery 03/20/24 13:30 03/20/24 13:45 03/20/24 14:00 Temperature 97.5 F L Pulse Rate 75 69 96 Blood Pressure 123/68 126/65 114/82 Pulse Oximetry Oxygen Delivery 03/20/24 14:15 03/20/24 14:30 03/20/24 15:00 Temperature Pulse Rate 65 61 72 Blood Pressure 116/72 123/69 117/64 Pulse Oximetry Oxygen Delivery 03/20/24 15:30 03/20/24 16:00 03/20/24 16:30 Temperature Pulse Rate 59 L 65 68 Blood Pressure 114/64 108/67 105/71 Pulse Oximetry Oxygen Delivery 03/20/24 17:00 03/20/24 12:00 03/20/24 15:58 Temperature 97.6 F 97.9 F
--- NOTE | 2024-03-20 22:55 | P.PCNOB_ITS ---
OB - Vaginal Delivery Note Procedure Delivery date: 03/20/24 Induction method: Per Misoprostol Protocol Delivery augmentation: Rupture of Membranes and Pitocin Delivery monitor: External FHT and Internal Uterine Route of delivery: Episiotomy description: None Laceration Description: None Specimen: No Quantitative Blood Loss (ml): 150 Anesthesia type: Epidural Disposition: Floor Complications: No immediate complications Narrative: She was admitted for MIL. She had one dose of cytotec 50ug buccal. She had AROM. Pitocin was started. IUPC placed. She dilated to complete and delivered a male infant, vigorously crying, placed on maternal abdomen, delayed cord clamping. [place] Baby Date of : 03/20/24 Time of : 22:40 Weeks of gestation at delivery: 39 gender: Male presentation: vertex position: Left Occiput Anterior Placenta delivery description: Spontaneous Cord Vessel Description: 3 Vessels, Nuchal Cord, Loose and Reduced (manually) score one minute: 9 score five minutes: 9
--- NOTE | 2024-03-20 22:55 | WPDOBADMIT ---
Obstetrics - Admit Note Admission Note: record reviewed. No pertinent additions to the history and/or any subsequent changes in the physical findings that are not consistent with the expected course of the were found. Additions to the history and/or subsequent changes in the physical findings follow. None.
[2024-03-21] VITALS (9 sets, daily range): BP systolic 98–116; BP diastolic 54–70; PULSE 53–69; RESP 16–18; TEMP 36.4–37.1; O2SAT 99–100
[2024-03-21] MEDS: IBUPROFEN 600 MG TABLET PO ×3 (01:37→19:55)
[2024-03-21] MEDS: ONDANSETRON INJ 4 MG/2 ML VIAL IV PUSH (01:37)
[2024-03-21] MEDS: OXYTOCIN 30 UNITS/NS 500 ML 30 UNITS/500 ML BAG 125 UNITS IV CONT (02:35)
--- NOTE | 2024-03-21 02:36 | PC.NURSE ---
999 bag of pit given at [id number]
[2024-03-21 05:17] LABS: Hematocrit 31.1 % (37.0-47.0); Hemoglobin 10.6 g/dL (12.0-15.0)
--- NOTE | 2024-03-21 06:13 | OBPPTRN ---
Patient transferred to post room #279 via (wheelchair ). Support person present. Oriented to unit, room, information board, rooming in, admission packet and security measures. Patient verbalizes understanding.
[2024-03-21] MEDS: MULTIVIT/MIN/PREN/FOL AC/IRON TABLET 1 TAB PO (09:52)
--- NOTE | 2024-03-21 10:20 | P.PNOB_ITS ---
OB - PN: Subj Subjective Date/time seen: 03/21/24 10:20 Patient comments: pain well controlled, tolerating diet and other (Decreasing lochia.) baby status: doing well and nursing well OB - PN: Obj Data Labs 03/21/24 04:47 Labs: Laboratory Results - last 24 hr 03/20/24 03/21/24 09:32 04:47 WBC 11.6 H RBC 3.82 L Hgb 11.7 L 10.6 L Hct 33.8 L 31.1 L MCV 88.5 MCH 30.6 MCHC 34.6 RDW 13.9 Plt Count 219 MPV 10.7 H Immature Gran % (Auto) 0.6 H Neut % (Auto) 68.0 Lymph % (Auto) 23.0 [place] % (Auto) 7.1 Eos % (Auto) 0.9 Baso % (Auto) 0.4 Lymph # (Auto) 2.67 [place] # (Auto) 0.8 H Eos # (Auto) 0.1 Baso # (Auto) 0.1 Abs Immat Gran (auto) 0.07 H Absolute Neuts (auto) 7.9 H Absolute Nucleated RBC 0.000 Nucleated RBC % 0.0 HIV 1&2 Ab/P24 Ag 4thGn Negative Blood Type AB Positive Antibody Screen Negative OB - PN A/P Plan day: 1 Plan: routine care Comments: Patient doing well. Time Spent With Patient Time: Total time spent is greater than 50% in coordination of care (as documented) at patient's floor/unit and/or counseling patient: Exam Psych: Affect: normal affect Other: Abd: fundus firm below umbilicus, nontender Perineum: healing Ext: nontender
--- NOTE | 2024-03-21 11:30 | PC.NURSE ---
Mother verbalizes she is able to independently latch with appropriate positioning and alignment. Baby was sleepy and he was circumcised this morning. Assisted mom to wake , educated on unwrapping, allowing baby to lay away from mom so he can stir and not be too cozy. She latched him well to the left breast in cradle hold. She denies any nipple discomfort and is responsively . Infant is currently meeting outcomes for weight, output, jaundice, blood sugar and feeding frequencies of 8-12 times in 24 hours. Mother declines any additional assistance or education at this time. Mother is encouraged to call for assistance if her infant doesn?t latch, pain with latching, questions or concerns. Mother voiced understanding of information shared along with the mom/baby guide for an additional resource. Reported to the Primary RN.
[2024-03-21 13:14] LABS: Rapid Plasma Reagin Non-Reactive (NonReactive)
--- NOTE | 2024-03-21 14:24 | WPDANLDPN2 ---
Anes-Prog Note L&D Date/Time: 03/21/24 14:24 Comfortable throughout: labor and delivery Neuraxial method: epidural Epidural/Spinal procedure site: clean & non-tender Neuro status: Neuro function grossly intact. Cardiovascular status: normal Respiratory status: normal Airway patency: baseline Mental status: baseline Post-Op hydration status: normal Vital Signs: Last Vital Signs Temp 36.6 C 03/21/24 12:19 Pulse 62 03/21/24 12:19 Resp 16 03/21/24 12:19 BP 107/57 L 03/21/24 12:19 Pulse Ox 100 03/21/24 12:19 O2 Del Method Room Air 03/21/24 04:00 Pain score (VAS): 09/14 I/O: Intake & Output 03/20/24 03/21/24 03/21/24 23:59 07:59 15:59 Intake Total 308.3 Output Total 75 Balance 308.3 -75 Post-procedural complaints: none Patient feedback: Patient satisfied with anesthetic care.
[2024-03-21] MEDS: ACETAMINOPHEN 325 MG TABLET 650 MG PO (14:42)
[2024-03-22 08:00] VITALS: BP 117/69; PULSE 67; RESP 16; TEMP 36.7; O2SAT 100
[2024-03-22] MEDS: MULTIVIT/MIN/PREN/FOL AC/IRON TABLET 1 TAB PO (09:15)
--- NOTE | 2024-03-22 09:30 | P.DS_ITS ---
DS: Admitting Diagnosis Discharge Date 03/22/24 Admitting Diagnosis Induction of labor DS: Discharge Diagnosis Discharge Diagnosis (1) Vaginal delivery: Code(s): O80 - Encounter for full-term uncomplicated delivery Status: Acute OB - DS: Summary Hospital Course Hospital Course: She was admitted for medical induction of labor. She had cytotec and then Pitocin augmentation after AROM. She had an uncomplicated vaginal delivery. She did well . Baby did well . She was discharged to home on day two. Discharge precautions discussed. OB Procedures : Ultrasound OB Procedures Intrapartum: Spontaneous Vag Delivery OB Procedures: : None Peripartum Data Infant Delivery Method: Natural Vaginal Laceration Description: None Episiotomy description: None complications: none Status at Discharge Functional status at discharge: independent ambulation Time Spent with Patient Time attestation: Total time spent providing and/or coordinating discharge services: Exam Const: General: cooperative Orientation/consciousness: oriented to person, oriented to place and oriented to time HENMT: Face/Nose/Sinus: Normal external nose present Eyes: General: appearance normal, both eyes and all related structures Resp: Effort & Inspection: normal respiratory effort GI: Inspection: normal to inspection Skin: General skin exam: normal color Neuro: General: oriented to person, oriented to place and oriented to time Extrem: General: normal to inspection and no calf tenderness Psych: Appearance: grossly normal Mental Status: mental status grossly normal DS: Data Data Completed and Pending Labs on day of discharge: Labs from last 24 hours 03/20/24 09:32 RPR Non-reactive Discharge Plan Discharge Attending physician on discharge: Maynor Reilly Consulting providers: Shan Forrest Jr. Discharging Clinician: Maynor Reilly Anticipated Discharge Date/Time: 03/22/24 09:29 Patient Disposition: Home, Self-Care Activity: may shower and pelvic rest Diet: regular Patient Instructions: Antibiotic Form Stand Alone Forms: General Discharge Information Follow-up/Referrals: Maynor Reilly MD [Physician] - 6 Weeks (Call for appointment) Discharge Medications: No Action ferrous sulfate [Feosol] 325 mg (65 mg iron) tablet 325 mg PO DAILY prenat.vits,carie,ktu-ssua-cftwl Tablet 1 tablet PO QAM Date of admission: 03/20/24 09:15 Primary Care Provider: PHYSICIAN,CONTACT CENTER ASSOCIATE Admitting Provider: Maynor Reilly Attending physician on admission: Maynor Reilly Condition: Stable
[2024-03-23 09:19] VITALS: BP 104/63; PULSE 71; RESP 18; TEMP 36.7; O2SAT 100
== END 2024-03-22 11:45 | disposition home or self-care (01) | DRG 560 ==
LOC: ANHLDR 09:18 → ANHOB2 03-21 01:31
PROVIDERS: Admitting Provider Obstetrics & Gynecology; Visit Provider Obstetrics & Gynecology
DX: O69.81X0 Labor and delivery complicated by cord around neck, without compression, not applicable or unspecified (principal); Z37.0 Single live birth; Z3A.39 39 weeks gestation of pregnancy
CPT/HCPCS: 36415; 85014; 85018; 85025; 86592; 86703; 86850; 86900; 86901; A9270; G0432; J2405; J2590; J2795; J3010; J7120

== ENCOUNTER 2025-08-20 15:40 | Outpatient (CLI) | payer OTHER, SELFPAY ==
[2025-08-20 16:01] LABS: Hematocrit 35.8 % (37.0-47.0); Hemoglobin 12.3 g/dL (12.0-15.0); Mean Corpuscular HGB Conc 34.4 g/dl (32-36); Mean Corpuscular Hemoglobin 30.4 pg (26-34); Mean Corpuscular Volume 88.6 fl (80-100); Platelet Count Result 192 k/mm3 (150-375); Red Blood Count 4.04 M/mm3 (4.2-5.4); White Blood Count 10.6 K/mm3 (4.5-10.0)
[2025-08-20 16:49] LABS: Syphilis IgG/IgM Antibody Non-Reactive (Nonreactive)
[2025-08-20 16:52] LABS: Hepatitis B Surface Antigen Negative (Negative)
[2025-08-20 17:01] LABS: HIV 1/2 Ab P24 Ag Result Negative (Negative)
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
--- OUTSIDE RECORDS SUMMARY | 2025-08-20 17:51 | XMS_ITS | Clinical Summary ---
Author Organization [facility] Address [address] [place] [address] Care Team Providers Care Forming Operator Name Role Phone [facility] ([facility]) Primary Care Provi marciano Source Comments [facility],non-owned Affiliates and Associated Physician Practices is amultiple site organization consisting of ambulatory clinics and hospital sitesin [place], [place], [place] and [place]. This disclosure is being madepursuant to the Care Everywhere program and may not contain all information available regarding this patient. Last updated 18.[facility] Allergies No known active allergies Medications * Be aware that medications may not be up to date on this document. Alwaysverify current medications with the patient. ibuprofen (Motrin) 600 MG tablet Take 1 (one) tablet by mouth every 6 hours as needed for Pain 20 tablet 10/04/2022 Active Social History Tobacco Use Types Packs/Day Years Used Date Smoking Tobacco: Never Assessed AUDIT-C Answer Date Recorded Q1: How often do you have a drink containing alc ohol? Never 10/04/2022 Average Number of Drinks Not on file 023 Frequency of Binge Drinking Not on file 09/07 Comments No Sex and Gender Information Value Date Recorded Sex Assigned at Not on file Legal Sex Female 5:35 AM TALENT ACQUISITION CONSULTANT Gender Identity Not on file Sexual Orientation Not on file Last Filed Vital Signs Vital Sign Reading Time Taken Comments Blood Pressure 134/78 10/04/2022 5:00 AM TALENT ACQUISITION CONSULTANT Pulse 111 10/04/2022 3:13 AM TALENT ACQUISITION CONSULTANT Temperature - - Respiratory Rate 20 10/04/2022 3:13 AM TALENT ACQUISITION CONSULTANT Oxygen Saturation 97% 10/04/2022 5:00 AM TALENT ACQUISITION CONSULTANT Inhaled Oxygen Concentration - - Weight 68 kg (150 lb) 10/04/2022 3:13 AM TALENT ACQUISITION CONSULTANT Height 170.2 cm (5' 7) 10/04/2022 3:13 AM TALENT ACQUISITION CONSULTANT Body Mass Index 23.49 10/04/2022 3:13 AM TALENT ACQUISITION CONSULTANT Plan of Treatment Health Maintenance Due Date Last Done Comments HEPATITIS C SCREENING 06/15/2010 DTAP/TDAP/TD VACCINES (1 - Tdap) 2011 HEPATITIS B VACCINE (1 of 3 - 19+ 3-dose series) 2011 PAP SMEAR 2013 HPV VACCINE (1 - 3-dose SCDM series) 2019 DEPRESSION SCREENING 09/05/2024 COVID-19 VACCINE (1 - 2024-2 6 season) 2025 INFLUENZA VACCINE (#1) 2025 07/20/2017 ZOSTER VACCINE (1 of 2) 2042 HIV SCREENING Completed 01/29/2018 HIB VACCINE Aged Out No longer eligi ble based on patient's age to complete this topic MENINGOCOCCAL (Group B) VACC INE SHARED DECISION-MAKING Aged Out No longer eligibl e based on patient's age to complete this topic MENINGOCOCCAL GROUPS A/C/Y/W VACCINE Aged Out No longer eligible b ased on patient's age to complete this topic PNEUMOCOCCAL VACCINE Aged Out No long er eligible based on patient's age to complete this topic [facility] TPL THIRD REPUBLICAN LIABILITY Alliance Party Liability [facility] Care Teams Forming Operator Relationship Specialty Start Date End Date [facility] ([facility]) [address] [place] [address] PCP - General 03/20/18
--- OUTSIDE RECORDS SUMMARY | 2025-08-20 17:51 | XMS_ITS | Clinical Summary ---
Author Organization [facility] Address [address] [place] [address] Care Team Providers Care Registered Nurse Nursery Name Role Phone Taj Salas MD Primary Care Provider Stella wallace Allergies Active Allergy Reactions Criticality Noted Date Comments Codeine Itching,Vomiting 11/04/2017 Medications No known medications Active Problems Problem Noted Date Diagnosed Date 01/29/2018 Social History Tobacco Use Types Packs/Day Years Used Date Smoking Tobacco: Never Smokeless Tobacco: Never Alcohol Use Standard Drinks/Week Comments Yes 0 (1 standard drink = 0.6 oz pur e alcohol) occ Comments No Sex and Gender Information Value Date Recorded Sex Assigned at Not on file Legal Sex Female 5:28 PM CDT Gender Identity Not on file Sexual Orientation Not on file Last Filed Vital Signs Vital Sign Reading Time Taken Comments Blood Pressure 110/66 09/19/2021 9:56 PM CRITICAL CARE TRANSPORT NURSE Pulse 86 09/19/2021 9:56 PM CRITICAL CARE TRANSPORT NURSE Temperature 36.7 C (98.1 F) 09/19/2021 8:44 PM CRITICAL CARE TRANSPORT NURSE Respiratory Rate 19 09/19/2021 9:56 PM CRITICAL CARE TRANSPORT NURSE Oxygen Saturation 98% 09/19/2021 9:56 PM CRITICAL CARE TRANSPORT NURSE Inhaled Oxygen Concentration - - Weight 59.2 kg (130 lb 8.2 oz) 09/19/2021 8:44 P M CRITICAL CARE TRANSPORT NURSE Height 170.2 cm (5' 7) 09/19/2021 8:44 PM CRITICAL CARE TRANSPORT NURSE Body Mass Index 20.44 09/19/2021 8:44 PM CRITICAL CARE TRANSPORT NURSE Plan of Treatment Health Maintenance Due Date Last Done Comments Cervical Cancer Screening Pap Smear (Age 30 to 64) Every 3 Years 1992 Annual Physical 1995 HPV Vaccines (2 - 3-dose series) 08/16/2007 07/19/2007 Hepatitis C 2010 Cervical Cancer Screening Pap with HPV Testing (Age 30 to 64) Every 5 Years 2022 Cervical Cancer Screening with HPV 2022 COVID-19 Vaccine (2024- season) 2025 Influenza Adult (#1) 2025 07/20/2017 DTaP, Tdap and Td Vaccines (7 - Td or Tdap) 09/22/2029 09/22/2019, 03/08/2018, 04/08/2016, Additional history exists Hepatitis B Vaccines Completed 10/12/2005, 04/11/1998, 11/20/1997, Additional history exists Meningococcal Vaccine Aged Out 10/19/2005 No hanna everton eligible based on patient's age to complete this topic Hepatitis A Vaccines Aged Out No long er eligible based on patient's age to complete this topic Meningococcal B Vaccine Aged Out No l onger eligible based on patient's age to complete this topic Pneumococcal Vaccine: Pediatrics (0 to 5 Years) and At-Risk Patients (6 to 49 Years) Aged Out No longer eligible based on patient's age to complete this topic RSV Immunizations Under 20 Months Aged Out No longer eligible based on patient's age to complete this topic Insurance [employer] MEDICAID Care Teams Registered Nurse Nursery Relationship Specialty Start Date End Date Taj Salas MD PCP - General 09/28/16
--- OUTSIDE RECORDS SUMMARY | 2025-08-20 17:51 | XMS_ITS | Encounter Summary ---
Author Organization [facility] Address [address] [place] [address] Care Team Providers Care Land Planner Name Role Phone [facility] ([facility]) Primary Care Provi marciano Encounter Details Date Type Department Care Team (Late st Contact Info) Description 11/18/2023 Telephone [facility] Women's Health Maternal & Care [address] [place] [address] Deandra Marcelo Social History Tobacco Use Types Packs/Day Years Used Date Smoking Tobacco: Never Assessed AUDIT-C Answer Date Recorded Q1: How often do you have a drink containing alc ohol? Never 10/04/2022 Average Number of Drinks Not on file 023 Frequency of Binge Drinking Not on file 09/07 Comments Yes Sex and Gender Information Value Date Recorded Sex Assigned at Not on file Legal Sex Female 5:35 AM REAL ESTATE PROCESSOR Gender Identity Not on file Sexual Orientation Not on file documented as of this encounter Plan of Treatment Not on file documented as of this encounter Visit Diagnoses Not on filedocumented in this encounter Care Teams Land Planner Relationship Specialty Start Date End Date [facility] ([facility]) [address] [place] [address] PCP - General 03/20/18 documented as of this encounter
[2025-08-21 08:08] LABS: Varicella-Zoster Ab, IgG Reactive (Non Reactive)
== END 2025-08-20 15:41 | disposition home or self-care (01) ==
PROVIDERS: Visit Provider Nurse Practitioner Family
DX: Z34.90 Encounter for supervision of normal pregnancy, unspecified, unspecified trimester (principal); Z3A.00 Weeks of gestation of pregnancy not specified
CPT/HCPCS: 36415; 85027; 86593; 86703; 86762; 86787; 86803; 86850; 86900; 86901; 87340; G0432